=== PATIENT | male | born 1940 | race Caucasian/White ===

== ENCOUNTER 2017-05-07 14:52 | Inpatient (IN) | payer MEDICARE, OTHER ==
[~2017-05-07] VITALS: Ht 180.3 cm; Wt 126.0 kg
[~2017-05-07 14:52] MED LIST: ALLO100T PO; ASPI325T PO; ATEN-100 PO; ATOR10 PO; COLC1TAB7 PO; FURO40TA PO; LORTA5 PO; POTA10IN2 PO; RAPA8CAP PO; SINE50TA PO; TEMA15CA PO
[2017-05-07 14:54] VITALS: BP 159/101; PULSE 104; RESP 15; TEMP 98.4; O2SAT 98
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
[2017-05-07] MEDS ORDERED: SERT-132 PO (15:21)
[2017-05-07] MEDS ORDERED: FURO1TAB61 PO (15:21)
[2017-05-07] MEDS ORDERED: CARB50TA3 PO (15:21)
[2017-05-07] MEDS ORDERED: POTA10CA PO (15:21)
[2017-05-07] MEDS ORDERED: ALLO300T2 PO (15:21)
[2017-05-07] MEDS ORDERED: ASPI81CH CHEW (15:21)
[2017-05-07] MEDS ORDERED: ALBUAER3 INH (15:21)
[2017-05-07] MEDS ORDERED: METO50TA PO ×2 (15:21)
[2017-05-07] MEDS ORDERED: OCUVTAB4 PO (15:21)
[2017-05-07] MEDS ORDERED: SYMB160A INH (15:21)
[2017-05-07] MEDS ORDERED: ATOR20TA15 PO (15:21)
[2017-05-07] MEDS ORDERED: ALFU10TA2 PO (15:21)
[2017-05-07] MEDS ORDERED: SPIR50TA PO (15:21)
--- NOTE | 2017-05-07 15:37 | RADRPT ---
EXAM DATE/TIME: 05/07/2017 15:23 [facility] COMPARISON: No previous studies available for comparison. INDICATIONS : Fall. Left lateral elbow pain. MEDICAL HISTORY : None. SURGICAL HISTORY : None. ENCOUNTER: Initial ACUITY: 1 day PAIN SCORE: 10/10 LOCATION: Left lateral elbow FINDINGS: There is fracturing of the distal lateral aspect of the humerus involving the capitellum. The fragmen t is displaced anteriorly and laterally. The capitellum no longer communicates with the radial head. There appears to be possible fracturing of the lateral aspect of the radial head. There is an elbow e ffusion. The medial aspect of the distal humerus and the ulna are intact. There is chronic calcificat ion seen adjacent to the medial epicondyles. CONCLUSION: Fracturing of the distal lateral humerus and at the lateral radial head. Dashawn Siddiqui MD on May 07, 2017 at 15:33 Board Certified Radiologist. This report was verified electronically.
[2017-05-07] MEDS ORDERED: ONDANSETRON HCL 4 MG/2 ML VIAL IV PUSH ONE (16:00)
[2017-05-07] MEDS ORDERED: MORPHINE SULFATE 4 MG/ML INJ IV PUSH ONE ×2 (16:00→18:15)
[2017-05-07 16:22] LABS: AUTOMATED NEUTROPHIL # 7.9 TH/MM3 (1.8-7.7); BASOPHIL # 0.1 TH/MM3 (0-0.2); BASOPHIL % 0.7 % (0.0-2.0); EOSINOPHIL # 0.6 TH/MM3 (0-0.4); EOSINOPHIL % 5.1 % (0.0-4.0); HEMATOCRIT 43.9 % (39.0-51.0); HEMO FLAGS DIFF FINAL; LYMPH % 15.5 % (9.0-44.0); LYMPHOCYTE # 1.7 TH/MM3 (1.0-4.8); MEAN CELL VOLUME 83.7 FL (80.0-100.0); MEAN CORPUSCULAR HEMOGLOBIN 27.5 PG (27.0-34.0); MEAN CORPUSCULAR HGB CONC 32.8 % (32.0-36.0); MONO % 7.5 % (0.0-8.0); NEUT % 71.2 % (16.0-70.0); PLATELET COUNT 190 TH/MM3 (150-450); RED BLOOD COUNT 5.24 MIL/MM3 (4.50-5.90); WHITE BLOOD COUNT 11.1 TH/MM3 (4.0-11.0)
--- NOTE | 2017-05-07 16:25 | RADRPT ---
EXAM DATE/TIME: 05/07/2017 16:06 [facility] COMPARISON: CHEST SINGLE AP, December 03, 2013, 8:52. INDICATIONS : Evaluate for pnemonia, pneumothorax, or other communicable diseases. MEDICAL HISTORY : SURGICAL HISTORY : Pacemaker. Defribulator, CABG ENCOUNTER: Initial ACUITY: 1 day PAIN SCORE: 0/10 LOCATION: Bilateral chest FINDINGS: Pacemaker on the left. The lungs are clear. The heart is minimally enlarged. Sternal wires and bypass are noted. The pulmo nary vascularity is normal. There is no evidence for infiltrate or failure. The portion of the bony skeleton visualized is unremarkable. CONCLUSION: Compensated cardiomegaly otherwise negative Mike Kimball MD FACR on May 07, 2017 at 16:23 Board Certified Radiologist. This report was verified electronically.
[2017-05-07 16:34] LABS: APTT (PATIENT) 23.1 SEC (24.3-30.1); PROTHROMBIN TIME - PATIENT 11.1 SEC (9.8-11.6)
[2017-05-07 16:35] LABS: ALT (GPT) 27 U/L (12-78); ANION GAP 8 MEQ/L (5-15); AST (GOT) 21 U/L (15-37); BICARBONATE 27.7 MEQ/L (21.0-32.0); BLOOD UREA NITROGEN 29 MG/DL (7-18); CHLORIDE 104 MEQ/L (98-107); GLOMERULAR FILTRATION RATE 58 ML/MIN (>89); POTASSIUM 4.2 MEQ/L (3.5-5.1); SODIUM (NA) 140 MEQ/L (136-145)
[2017-05-07 16:37] LABS: ALKALINE PHOSPHATASE 67 U/L (45-117); TOTAL BILIRUBIN ADULT 0.4 MG/DL (0.2-1.0)
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
[2017-05-07] MEDS ORDERED: ALBUTEROL SULFATE 90 MCG/ACT HFA 8 GM INHALER INH PRN (17:15)
[2017-05-07] MEDS ORDERED: MORPHINE SULFATE 8 MG/ML INJ IV PUSH PRN (17:30)
[2017-05-07] MEDS ORDERED: HYDROmorphone HCL PF 1 MG/ML VIAL IV PUSH ONE (17:30)
[2017-05-07] MEDS ORDERED: ACETAMINOPHEN 325 MG TAB PO PRN (17:45)
[2017-05-07] MEDS ORDERED: ONDANSETRON HCL 4 MG/2 ML VIAL IVP PRN (17:45)
[2017-05-07] MEDS ORDERED: diphenhydrAMINE HCL 25 MG CAP PO ONE (18:15)
--- NOTE | 2017-05-07 19:30 | RADRPT ---
EXAM DATE/TIME: 05/07/2017 18:35 [facility] COMPARISON: No previous studies available for comparison. INDICATIONS : Patient fell injury to left elbow, evaluate fracture. RADIATION DOSE: 12.05 CTDIvol (mGy) MEDICAL HISTORY : Congestive hearrt failure. Cardiovascular disease D-fib SURGICAL HISTORY : None. ENCOUNTER: Initial ACUITY: 1 day PAIN SCALE: 7/10 LOCATION: Left elbow TECHNIQUE: Volumetric scanning of the elbow was performed. Using automated exposure control and adjustment of t he mA and/or kV according to patient size, radiation dose was kept as low as reasonably achievable to obtain optimal diagnostic quality images. DICOM format image data is available electronically for r eview and comparison. FINDINGS: There is fracturing of the distal lateral humerus. The lateral fragment of the distal humerus is disp laced and angulated laterally and anteriorly. The capitellum is seen anterior to the radial head. The re are small bone fragments seen between the radial head and the capitellum. There is some fracturing of the anterior lateral aspect of the trochea at the distal medial humerus. The elbow joint between the distal humerus and the ulna is aligned. There is a minimal fragmentation at the distal olecranon which is likely chronic. CONCLUSION: Fracture of the distal humerus involving the lateral aspect of the humerus and the anterior and later al aspect of the trochlea. The large lateral fragment is anteriorly and laterally displaced. Dashawn Siddiqui MD on May 07, 2017 at 19:19 Board Certified Radiologist. This report was verified electronically.
[2017-05-07] MEDS ORDERED: HYDROmorphone HCL PF 1 MG/ML VIAL IV PRN (20:00)
[2017-05-07 20:34] VITALS: BP 111/72; PULSE 88; RESP 18; TEMP 97.9; O2SAT 91
[2017-05-07] MEDS ORDERED: ATORVASTATIN 20 MG TAB PO SCH (21:00)
[2017-05-07] MEDS ORDERED: ZOLPIDEM TARTRATE 5 MG TAB PO PRN (21:00)
[2017-05-07 21:10] VITALS: O2SAT 95
[2017-05-07] MEDS: ACETAMINOPHEN 1000 MG/100 ML VIAL IV SCH (22:40)
[2017-05-07] MEDS: BUDESONIDE-FORMOTEROL 160/4.5 MCG INHALER INH SCH (22:40)
[2017-05-07] MEDS: LEVODOPA/CARBIDOPA 1 TAB TABCR PO SCH (22:40)
[2017-05-07] MEDS: KETOROLAC TROMETHAMINE 30 MG/ML (IVP) VIAL IVP PRN (22:41)
[2017-05-07] MEDS: DOCUSATE SODIUM 50 MG/SENNA 8.6 MG TAB PO SCH (22:41)
[2017-05-07] MEDS: METOPROLOL TARTRATE 50 MG TAB PO SCH (22:41)
[2017-05-08] VITALS (7 sets, daily range): BP systolic 91–104; BP diastolic 51–65; PULSE 72–90; RESP 16–20; TEMP 97.6–98.6; O2SAT 92–97
[2017-05-08] MEDS: ACETAMINOPHEN 1000 MG/100 ML VIAL IV SCH ×4 (00:15→19:12)
[2017-05-08] MEDS ORDERED: ALLOPURINOL 300 MG TAB PO SCH (09:00)
[2017-05-08] MEDS: FUROSEMIDE 80 MG TAB PO SCH (09:00)
[2017-05-08] MEDS ORDERED: MINERALS PO SCH (09:00)
[2017-05-08] MEDS ORDERED: PT PRESERVISION AREDS PO SCH (09:00)
[2017-05-08] MEDS: METOPROLOL TARTRATE 50 MG TAB PO SCH ×2 (09:00→21:00)
[2017-05-08] MEDS ORDERED: MULTIPLE VITAMINS PO SCH (09:00)
[2017-05-08] MEDS: SPIRONOLACTONE 50 MG TAB PO SCH (09:00)
[2017-05-08] MEDS ORDERED: ceFAZolin INJ 1,000 MG VIAL ONE (09:01)
[2017-05-08] MEDS ORDERED: VANCOMYCIN HCL 1000 MG VIAL ONE (09:01)
[2017-05-08] MEDS ORDERED: ceFAZolin 2 GM PREMIX 50 ML ONE (09:01)
[2017-05-08] MEDS ORDERED: GENTAMICIN SULFATE 80 MG/2 ML VIAL ONE (09:01)
[2017-05-08] MEDS ORDERED: SODIUM CHLOR 0.9% 250 ML INJ 250 ML ONE (09:02)
[2017-05-08] MEDS ORDERED: FAMOTIDINE 20 MG/2 ML VIAL ONE (09:17)
[2017-05-08] MEDS ORDERED: ACETAMINOPHEN 1000 MG/100 ML 100 ML IV ONE (09:17)
[2017-05-08] MEDS ORDERED: MIDAZOLAM HCL 2 MG/2 ML VIAL IV ONE ×2 (09:32→11:45)
[2017-05-08] MEDS ORDERED: NEOSTIGMINE 3 MG/3 ML SYR IV ONE (09:32)
[2017-05-08] MEDS ORDERED: PROPOFOL 200 MG/20 ML AMP IV ONE (09:32)
[2017-05-08] MEDS ORDERED: ePHEDrine/NS 25 MG/5 ML SYR IV ONE ×2 (09:32→12:00)
[2017-05-08] MEDS ORDERED: HYDR-3580 PO (09:50)
[2017-05-08] MEDS ORDERED: PNEUMOCOCCAL POLYVALENT INJ 25 MCG/0.5 ML SYR IM ONE (10:00)
[2017-05-08] MEDS ORDERED: INFLUENZA VIRUS VACCINE (QUADRIVALENT) 0.5 ML SYR IM ONE (10:00)
[2017-05-08 10:42] LABS: HEMOGLOBIN A1a 1.1 %; HEMOGLOBIN A1b 2.3 %; HEMOGLOBIN Ao 81.7 %; HEMOGLOBIN LA1C 2.3 %
[2017-05-08] MEDS ORDERED: Post-op Orders (for Pharmacy) MISC XX ONE (11:00)
[2017-05-08] MEDS ORDERED: ACETAMINOPHEN/HYDROcodone 325 MG/7.5 MG TAB PO PRN (11:00)
[2017-05-08] MEDS ORDERED: MORPHINE SULFATE 4 MG/ML INJ IV PUSH PRN (11:00)
--- NOTE | 2017-05-08 11:03 | PD.OP ---
cc: Eron Tian MD Operative Report Date of Surgery: May 08, 2017 Preoperative Diagnosis: Displaced intra-articular left distal humerus fracture, radial head fracture Postoperative Diagnosis: Procedure: Open treatment of left radial head fracture with excision of fragment, open reduction internal fixation intra-articular left distal humerus fracture Anesthesia: Gen. Surgeon: Eron Tian Valuation Manager(s): CY Cerda PA-C The surgical procedure was assisted by my physician assistant quality manager. My P.A. presence was necessary throughout this case for the manipulation and positioning of the surgical extremity. My P.A. was assisting me throughout the duration of this procedure. The skill set of a physician assistant quality manager was medically necessary to complete this procedure. During the surgical case the surgical services director was working at the back table and the physician assistant quality manager was directly assisting me. Operation and Findings: Plan of activity : Nonweightbearing left arm, start passive range of motion in 2 weeks Patient was seen and evaluated preoperatively and found to have displaced left distal humerus fracture and radial head fracture. Treatment options were discussed regarding distal humerus fracture including surgical and nonsurgical treatments. After detailed discussion of risk and benefits of procedure patient wishes to proceed with surgery. Risks of surgery include bleeding, infection, nonunion, malunion, painful hardware, loss of motion of shoulder and elbow, weakness and numbness of arm, ulnar nerve injury as well as medical competitions including blood clots stroke and . Patient was brought to operating room and placed on the OR table. GETA was administered by anesthesiologist. Patient was positioned in supine position. Operative arm and shoulder were prepped with alcohol followed by Hibiclens and draped usual sterile fashion. Timeout procedure was performed. IV antibiotics were given prior to incision. A standard lateral approach was utilized. Subcutaneous tissues was dissected with Bovie. The subcutaneous was border of the lateral distal humerus was exposed. Brachioradialis was elevated anteriorly to expose fracture. Fracture site was visualized. Soft tissue was removed from the fracture site. Fracture site was cleaned with curettes. At this point the fracture was reduced using fracture tenaculums. There was some impaction of the articular surface. This was elevated. K wires were used to hold provisional fixation. Multiplanar fluoroscopy confirmed excellent of fracture. A 2.7 cortical lag screw was placed along the proximal end of the fracture. A second 2.7 cortical lag screw was placed from lateral to medial. Good compression was obtained. Next a Synthes distal humerus plate was selected. Next the lateral plate was placed along the lateral humerus. Plate was provisionally held to bone with K wires. 3.5 cortical screws were used to compress plate to bone. Additional 2.7 locking screws were placed distally. K wires were removed. Next attention was turned towards the radial head. The radial head was identified. There was a relatively small fracture of the radial head. This was less than 20% of the articular surface. This fragment was excised. The elbow was stable throughout range of motion. The articular surface was visualized and was congruent. Final fluoroscopy revealed excellent alignment of fracture with well-placed hardware. Incision was thoroughly irrigated. Fascia was closed with #1 Vicryl, subcutaneous tissues closed with 3-0 Vicryl, and skin was closed with valerio. Sterile dressings were applied. Needle and sponge counts were correct. Patient was placed into a sling, and then transferred to recovery room in stable condition Eron Tian MD May 08, 2017 11:03
[2017-05-08] MEDS ORDERED: DO NOT ADM ANY ANTICOAGULANT DRUGS PRN (11:11)
[2017-05-08] MEDS ORDERED: *RESP: ALBUTEROL 2.5 MG/3 ML NEB (PRN) PERIprocedural Use ONLY NEB ONE (11:19)
[2017-05-08] MEDS ORDERED: ACETAMINOPHEN 1000 MG/100 ML VIAL IV ONE (11:45)
[2017-05-08] MEDS ORDERED: FAMOTIDINE 20 MG/2 ML VIAL IV ONE (11:45)
[2017-05-08] MEDS ORDERED: DEXAMETHASONE SOD PHOS 4 MG/ML VIAL IV ONE (11:45)
[2017-05-08] MEDS ORDERED: *morphine SULFATE 8 MG/ML PERIprocedure ONLY ONE (11:59)
--- NOTE | 2017-05-08 12:29 | HHI.FPPN ---
Subjective Remarks Angelo Bolanos is a 76yo gentleman with medical history significant for CHF, A fib, COPD, sleep apnea admitted for left elbow humeral and radial fractures, sustained after tripping over a stool and landing on left elbow. He noticed immediate pain in his left elbow. No head trauma, no LOC. For further details, please see resident H&P. This morning, he underwent ORIF of left elbow fractures by Dr. Garcia. He is seen in PACU and is awake and alert. He complains of some left elbow pain. Per nursing in PACU, his AICD will be interrogated by [employer] soon. ROS: No chest pain, no SOB, no palpitations. + left elbow pain. All other systems reviewed are negative. PMH/PSxH/SocHx/FamHx: Per resident H&P. Significant for: CHF, A fib, CAD, COPD, sleep apnea, gout, BPH. Aortic valve replacement, colon resection, tonsillectomy. Mother with heart disease and diabetes. 100 pack year tobacco history, quit 2010. Rare alcohol use. Lives with and stepson. Objective Vitals Vital Signs Date Time Temp Pulse Resp B/P (MAP) Pulse Ox O2 Delivery O2 Flow Rate FiO2 05/08/17 12:00 70 15 121/57 (78) 93 Nasal Cannula 3 05/08/17 11:45 75 15 122/67 (85) 94 Nasal Cannula 4 05/08/17 11:30 77 15 129/65 (86) 94 Nasal Cannula 4 05/08/17 11:15 98.7 78 14 148/77 (100) 94 Simple Mask 6 05/08/17 07:23 18 05/08/17 06:51 97.9 72 16 98/60 (73) 96 05/08/17 02:26 18 05/08/17 00:50 98.4 78 18 104/65 (78) 95 05/08/17 00:18 18 05/07/17 21:10 95 05/07/17 20:34 97.9 88 18 111/72 (85) 91 05/07/17 14:54 98.4 104 15 159/101 (120) 98 I/O 05/07/17 05/07/17 05/07/17 05/08/17 05/08/17 05/08/17 07:00 15:00 23:00 07:00 15:00 23:00 Intake Total 200 ml 1000 ml Output Total 50 ml Balance 200 ml 950 ml Intake Oral 200 ml 200 ml Other 800 ml Output Estimated Blood Loss 50 ml Result Diagram: 05/07/17 1600 05/07/17 1600 Objective Remarks GENERAL: in NAD, no resp distress, nontoxic. Talks in complete sentences. HEENT: NCAT, EOMI, no scleral icterus, no conjunctival injection. MMM. NECK: Supple, no meningeal signs. No JVD. CV: RRR, S1, S2. No murmurs. CHEST/PULM: CTAB, no crackles, no wheezes. No retractions, no accessory muscle use. Midline sternotomy scar. ABD/GI: +BS, soft, nontender, nondistended. EXT: 2+ DP pulses. No calf tenderness. No edema. Left upper arm in splint. Able to wiggle fingers. NEURO: Awake, alert. Normal muscle tone. Sensation to light touch in tact. Grossly WNL. SKIN: No rashes, no jaundice. Cap refill intact. PSYCH: Mood and affect are appropriate. Speech fluent. Does not appear to respond to internal stimuli. A/P Assessment and Plan 76-year-old male with past medical history of CHF, COPD, CAD, obstructive sleep apnea, and gout presents with an acute left elbow fracture after tripping over an antique stool in his home. Orthopedic surgery has been consulted and planned to take him to the OR for operative repair in the morning. Patient will be nothing by mouth at midnight except for by mouth medications. Pain will be controlled with IV medications with conversion to by mouth medications after surgery. Attending Attestation Patient seen, examined, and discussed with resident team. The patient has been seen and examined. The chart and all resident notes have been reviewed. I agree that inpatient care is appropriate and that a two midnight stay is expected for the reasons documented in the resident history and physical. I have discussed this with the resident and certify the resident s order for inpatient admission. Problem List: (1) Humeral distal fracture ICD Codes: S42.409A - Unspecified fracture of lower end of unspecified humerus , initial encounter for closed fracture Status: Acute Plan: -Left elbow x-ray and CT confirmed left distal humerus fracture -Orthopedics consulted, plan for operative repair in the a.m. -Pain control with PRN Toradol IV, Tylenol IV, and morphine IV for breakthrough -Switch to oral pain medications after surgery -Hold chemoprophylaxis until 24 hours after surgery -Vitamin D level pending -Chest x-ray shows compensated cardiomegaly, otherwise negative - BNP wnl at 95 -EKG significant for frequent supraventricular premature complexes but NSR, left bundle branch block - similar to previous tracing on 03/18/2014 (2) Leukocytosis ICD Codes: D72.829 - Elevated white blood cell count, unspecified Status: Acute Plan: Likely stress response. No obvious infectious etiology. (3) Vitamin D deficiency ICD Codes: E55.9 - Vitamin D deficiency, unspecified Status: Chronic Plan: Initiate Vit D replacement therapy. (4) Chronic Medical Problems Status: Chronic Plan: CAD: Continue Aspirin 81mg PO daily, medical management. CHF: Continue metoprolol 50 mg by mouth twice a day, spironolactone 50 mg by mouth daily, furosemide 80 mg by mouth daily, potassium chloride 10 mEq by mouth daily. AICD to be interrogated. COPD: Continue albuterol pro-air inhaler 2 puffs every 4 hours PRN SOB, Symbicort inhaler 2 puffs every 12 hours scheduled Hyperlipidemia: Continue atorvastatin 20 mg by mouth at bedtime Gout: Continue allopurinol 300 mg by mouth daily AFIB: Well controlled. Patient has a defibrillator Anxiety/Depression: Continue sertraline 80 mg by mouth daily BPH: Hold Alfuzosin until after surgery Parkinsonian Tremors: Continue Carbidopa-Levodopa 1 tab PO Q12hr Problem Qualifiers (1) Humeral distal fracture: Qualified Codes: S42.492A - Other displaced fracture of lower end of left humerus, initial encounter for closed fracture (2) Leukocytosis: Qualified Codes: D72.829 - Elevated white blood cell count, unspecified Jazmyn Smith MD May 08, 2017 12:29
--- NOTE | 2017-05-08 12:55 | RADRPT ---
EXAM DATE/TIME: 05/08/2017 10:40 [facility] COMPARISON: ELBOW LEFT LIMITED (AP & LAT), May 07, 2017, 15:23. INDICATIONS : Left elbow fracture status post open ridgid internal fixation. MEDICAL HISTORY : Congestive heart failure. Cardiovascular disease. SURGICAL HISTORY : Pacemaker. CABG. ENCOUNTER: Subsequent ACUITY: 1 day PAIN SCORE: Non-responsive. LOCATION: Left elbow FINDINGS: Limited AP and lateral views of the left elbow were obtained and demonstrate the patient status post open ridgid internal fixation with a screw plate fixation device transfixing the distal humeral fract ure. 2 surgical screws are present as well. The fracture fragments are in anatomic alignment. There i s mild soft tissue prominence. CONCLUSION: Status post open ridgid internal fixation. Percy Poon MD on May 08, 2017 at 12:52 Board Certified Radiologist. This report was verified electronically.
--- NOTE | 2017-05-08 14:01 | EKG ---
Date Performed: 05/07/2017 Time Performed: 16:04:40 PTAGE: 76 years EKG: Sinus rhythm WITH FREQUENT SUPRAVENTRICULAR PREMATURE COMPLEXES LEFT BUNDLE BRANCH BLOCK ABNORMAL ECG Compared to prior tracing no significant change PREVIOUS TRACING : 03/18/2014 13.17 DOCTOR: Ashely Li Interpretating Date/Time 05/08/2017 13:56:33
[2017-05-08] MEDS: DOCUSATE SODIUM 50 MG/SENNA 8.6 MG TAB PO SCH ×2 (14:23→20:46)
[2017-05-08] MEDS: SERTRALINE HCL 50 MG TAB PO SCH (14:23)
[2017-05-08] MEDS: LEVODOPA/CARBIDOPA 1 TAB TABCR PO SCH ×2 (14:24→20:46)
[2017-05-08] MEDS: ASPIRIN 81 MG CHEW TAB CHEW SCH (14:24)
[2017-05-08] MEDS: POTASSIUM CHLORIDE 10 MEQ CAP PO SCH (14:24)
[2017-05-08] MEDS: BUDESONIDE-FORMOTEROL 160/4.5 MCG INHALER INH SCH ×2 (14:24→20:44)
[2017-05-08 15:55] LABS: HEMATOCRIT 41.3 % (39.0-51.0); MEAN CELL VOLUME 84.6 FL (80.0-100.0); MEAN CORPUSCULAR HEMOGLOBIN 27.3 PG (27.0-34.0); MEAN CORPUSCULAR HGB CONC 32.3 % (32.0-36.0); PLATELET COUNT 189 TH/MM3 (150-450); RED BLOOD COUNT 4.88 MIL/MM3 (4.50-5.90); RED CELL DISTRIBUTION WIDTH 15.5 % (11.6-17.2); REVIEW FLAG FINAL; WHITE BLOOD COUNT 12.1 TH/MM3 (4.0-11.0)
[2017-05-08 16:29] LABS: BICARBONATE 26.6 MEQ/L (21.0-32.0); POTASSIUM 4.5 MEQ/L (3.5-5.1)
[2017-05-08 16:50] LABS: CALCIUM-PROTEIN CORRECTED 7.6 MG/DL (8.5-10.1)
--- NOTE | 2017-05-08 17:47 | MB ---
cc: ALEXANDER DE LA CRUZ DATE OF CONSULTATION 05/07/[address] Smith. REASON FOR CONSULTATION Left distal humerus fracture. HISTORY OF THE PRESENT ILLNESS Mr. Bolanos is a 76-year-old male who had three falls today. He was first outside picking up some debris in his yard. He tripped and fell twice. He then went in to the house. He then tripped over a step stool inside the house. He landed on his left arm. He had immediate left arm pain. He was seen in the emergency room. X-rays and CT scan revealed a complex fracture of the left distal humerus. He is currently awake and alert in the emergency department. His only complaint is his left arm. He denies any dizziness, syncope or loss of consciousness. Pain is worse with movement. ALLERGIES NONE. PAST SURGICAL HISTORY 1. Colon resection. 2. Aortic valve replacement. 3. Tonsillectomy. MEDICATIONS Include: 1. Symbicort 2. ProAir. 3. Metoprolol. 4. Spironolactone. 5. Lasix. 6. Potassium. 7. Carbidopa-levodopa. 8. Allopurinol. 9. Aspirin. PAST MEDICAL HISTORY Illnesses: 1. Atrial fibrillation. 2. Congestive heart failure. 3. Coronary artery disease. 4. Benign prostatic hypertrophy. 5. Gout. 6. Arthritis. 7. Chronic obstructive pulmonary disease. SOCIAL HISTORY The patient denies tobacco or drug use. Drinks alcohol occasionally. FAMILY HISTORY Noncontributory. REVIEW OF SYSTEMS The patient denies headache, visual changes, neck pain, chest pain, shortness of breath, abdominal pain, nausea or vomiting or recent weight loss or numbness or tingling of the extremities. He complains of left elbow pain. Pain is worse with movement. PHYSICAL EXAMINATION GENERAL: The patient is a pleasant 76-year-old male in no acute distress. He is awake and alert. He is alert and oriented times three. He is moderately overweight. VITAL SIGNS: Temperature 97.9, pulse 88, respirations 18, blood pressure 111/72, O2 sat 91% on room air. HEAD: The patient is normocephalic. Pupils are equal. NECK: Soft, nontender. Trachea is midline. ABDOMEN: Soft, nontender, nondistended. EXTREMITIES: Examination of left arm reveals no tenderness around his shoulder. He is diffusely tender around the elbow. He has pain with any elbow motion. He has good cap refill is all of his fingers. Skin is intact. Examination of right arm reveals no pain with shoulder, elbow or wrist motion. Skin is intact. Radial pulses palpable. Shovel Engineer strength is +5. Examination of bilateral lower extremities reveals no pain with hip, knee or ankle motion. Skin is intact. Dorsalis pedis pulses palpable. Sensation is intact. IMAGING X-rays of left elbow were reviewed. X-rays revealed displaced left distal humerus fracture. IMPRESSION 1. Congestive heart failure. 2. Coronary artery disease. 3. Atrial fibrillation. 4. Left distal humerus fracture. PLAN Treatment options were discussed with the patient. At this point I would recommend open reduction, internal fixation of the left distal humerus. Risks of surgery include bleeding, infection, injury to arteries, nerves and blood vessels, nonunion, malunion, painful hardware, elbow stiffness, elbow arthritis as well as medical complications including blood clot, stroke, heart attack and . All questions were answered. I will plan on surgery tomorrow. A mid-level provider in my office, nurse practitioner or PA, may see this patient on a follow-up basis and continue to implement the objective of this plan including: Starting or adjusting medications, injections of muscle, tendon, bursa or joints, cast application, orthotic or brace application, physical therapy, further radiographic studies including x-ray, MRI, CT, ultrasounds or bone scan, vascular studies, neurologic studies, or other specialist consultations, and proceeding with surgical management as appropriate. MD MARY Styles/GIANA /9:19 PM /5:21 PM
[2017-05-08] MEDS: ceFAZolin 2 GM PREMIX 50 ML IV SCH (17:50)
[2017-05-08] MEDS ORDERED: KETOROLAC TROMETHAMINE 30 MG/ML (IVP) VIAL IV PUSH ONE (19:00)
[2017-05-08] MEDS ORDERED: SODIUM CHLOR 0.9% 1000 ML INJ 1,000 ML IV ONE (19:00)
[2017-05-08] MEDS: KETOROLAC TROMETHAMINE 30 MG/ML (IVP) VIAL IVP PRN (19:11)
[2017-05-08] MEDS: CALCIUM/VITAMIN D 250 MG/125 U TAB PO SCH (20:46)
[2017-05-08] MEDS ORDERED: ATORVASTATIN 20 MG TAB PO SCH (21:00)
[2017-05-08] MEDS: ALLOPURINOL 300 MG TAB PO SCH (21:30)
[2017-05-09] MEDS: ACETAMINOPHEN 1000 MG/100 ML VIAL IV SCH ×2 (00:15→02:50)
[2017-05-09 00:18] VITALS: BP 107/52; PULSE 95; RESP 19; TEMP 98.1; O2SAT 92
[2017-05-09] MEDS: ceFAZolin 2 GM PREMIX 50 ML IV SCH ×2 (01:21→09:06)
[2017-05-09 02:30] VITALS: BP 134/70; PULSE 87; RESP 16; TEMP 96; O2SAT 98
[2017-05-09 02:35] VITALS: PULSE 58
--- NOTE | 2017-05-09 06:57 | PD.ORT.PN ---
Subjective Subjective Remarks POD 1 s/p ORIF left distal humerus doing well. pain controlled. out of bed Objective Vitals Vital Signs Date Time Temp Pulse Resp B/P (MAP) Pulse Ox O2 Delivery O2 Flow Rate FiO2 05/09/17 02:35 58 05/09/17 02:30 96.0 87 16 134/70 (91) 98 05/09/17 00:18 98.1 95 19 107/52 (70) 92 05/08/17 23:43 90 05/08/17 21:51 97.7 89 20 91/53 (66) 92 05/08/17 20:00 93 05/08/17 16:49 98.6 88 16 97/51 (66) 94 05/08/17 13:29 97.6 86 16 101/56 (71) 97 05/08/17 13:15 98.4 82 16 133/60 (84) 94 Nasal Cannula 3 05/08/17 12:45 81 15 119/62 (81) 94 Nasal Cannula 3 05/08/17 12:15 71 15 119/59 (79) 93 Nasal Cannula 3 05/08/17 12:00 70 15 121/57 (78) 93 Nasal Cannula 3 05/08/17 11:45 75 15 122/67 (85) 94 Nasal Cannula 4 05/08/17 11:30 77 15 129/65 (86) 94 Nasal Cannula 4 05/08/17 11:15 98.7 78 14 148/77 (100) 94 Simple Mask 6 05/08/17 07:23 18 I/O 05/08/17 05/08/17 05/08/17 05/09/17 05/09/17 05/09/17 07:00 15:00 23:00 07:00 15:00 23:00 Intake Total 1000 ml 245 ml Output Total 50 ml Balance 950 ml 245 ml Intake Oral 200 ml 245 ml Other 800 ml Output Estimated Blood Loss 50 ml # Voids 2 Result Diagram: 05/08/17 1541 05/08/17 1541 Objective Remarks LUE: +long arm splint. intact. NVI with full sensation of fingers. Assessment & Plan Assessment and Plan 1) Left Distal Humerus Fx s/p ORIF - POD 1 -NWB -maintain splint at all times -plan for DC home today -scripts on chart -f/u with Garcia or PA in 2 weeks Herman Poe May 09, 2017 06:57
[2017-05-09 08:00] VITALS: BP 115/54; PULSE 92; RESP 18; TEMP 96.8; O2SAT 93; O2SAT 95
[2017-05-09] MEDS ORDERED: CHOLECALCIFEROL (VIT D3) 1000 UNIT TAB PO SCH (09:00)
[2017-05-09] MEDS: CALCIUM/VITAMIN D 250 MG/125 U TAB PO SCH (09:03)
[2017-05-09] MEDS: METOPROLOL TARTRATE 50 MG TAB PO SCH (09:03)
[2017-05-09] MEDS: POTASSIUM CHLORIDE 10 MEQ CAP PO SCH (09:03)
[2017-05-09] MEDS: ALLOPURINOL 300 MG TAB PO SCH (09:04)
--- NOTE | 2017-05-09 09:04 | HHI.FPPN ---
Subjective Remarks Patient is doing well this morning. Has no complaints. Pain is down to 5/10 and he had a BM this morning. He is looking forward to going home today. (Chanda Mendoza MD R2) Objective Vitals Vital Signs Date Time Temp Pulse Resp B/P (MAP) Pulse Ox O2 Delivery O2 Flow Rate FiO2 05/09/17 02:35 58 05/09/17 02:30 96.0 87 16 134/70 (91) 98 05/09/17 00:18 98.1 95 19 107/52 (70) 92 05/08/17 23:43 90 05/08/17 21:51 97.7 89 20 91/53 (66) 92 05/08/17 20:00 93 05/08/17 16:49 98.6 88 16 97/51 (66) 94 05/08/17 13:29 97.6 86 16 101/56 (71) 97 05/08/17 13:15 98.4 82 16 133/60 (84) 94 Nasal Cannula 3 05/08/17 12:45 81 15 119/62 (81) 94 Nasal Cannula 3 05/08/17 12:15 71 15 119/59 (79) 93 Nasal Cannula 3 05/08/17 12:00 70 15 121/57 (78) 93 Nasal Cannula 3 05/08/17 11:45 75 15 122/67 (85) 94 Nasal Cannula 4 05/08/17 11:30 77 15 129/65 (86) 94 Nasal Cannula 4 05/08/17 11:15 98.7 78 14 148/77 (100) 94 Simple Mask 6 I/O 05/08/17 05/08/17 05/08/17 05/09/17 05/09/17 05/09/17 07:00 15:00 23:00 07:00 15:00 23:00 Intake Total 1000 ml 245 ml Output Total 50 ml Balance 950 ml 245 ml Intake Oral 200 ml 245 ml Other 800 ml Output Estimated Blood Loss 50 ml # Voids 2 (Chanda Mendoza MD R2) Result Diagram: 05/08/17 1541 05/08/17 1541 Objective Remarks GENERAL: in NAD, no resp distress, nontoxic. Talks in complete sentences. HEENT: NCAT, EOMI, no scleral icterus, no conjunctival injection. MMM. NECK: Supple, no meningeal signs. No JVD. CV: RRR, S1, S2. No murmurs. CHEST/PULM: CTAB, no crackles, no wheezes. No retractions, no accessory muscle use. Midline sternotomy scar. ABD/GI: +BS, soft, nontender, nondistended. EXT: 2+ DP pulses. No calf tenderness. No edema. Left upper arm in splint. Able to wiggle fingers. Good cap refill NEURO: Awake, alert. Normal muscle tone. Sensation to light touch in tact. Grossly WNL. SKIN: No rashes, no jaundice. Cap refill intact. PSYCH: Mood and affect are appropriate. Speech fluent. Does not appear to respond to internal stimuli. (Chanda Mendoza MD R2) A/P Assessment and Plan 76-year-old male with past medical history of CHF, COPD, CAD, obstructive sleep apnea, and gout presented with an acute left elbow fracture after tripping over an antique stool in his home. Orthopedic surgery was consulted and open treatment of left radial head fracture with excision of fragment as well as an open reduction internal fixation of the intra-articular left distal humerus fracture was performed on 05/08. On 05/09/17, the patient was cleared for discharge by orthopedic surgery. Discharge Planning Patient has been cleared by orthopedic surgery for discharge home today 05/09/17 (Chanda Mendoza MD R2) Attending Attestation Patient seen and examined, discussed with Dr. Mendoza. I agree with assessment and management as documented and discussed with me. Pt without complaints today. He reports left elbow pain is improved from yesterday. He has been cleared by ortho for discharge. Discharge home today. (Jazmyn Smith MD) Problem List: (1) Humeral distal fracture ICD Codes: S42.409A - Unspecified fracture of lower end of unspecified humerus , initial encounter for closed fracture Status: Acute Plan: -Left elbow x-ray and CT confirmed left distal humerus fracture -Postop day 1, ORIF -Pain control with PRN Toradol IV, Tylenol IV, and morphine IV for breakthrough -Switched to oral pain medications after surgery -Vitamin D level 20.5 - started on vitamin D replacement -Patient would not need any occupational therapy rehabilitation at home (2) Leukocytosis ICD Codes: D72.829 - Elevated white blood cell count, unspecified Status: Acute Plan: Likely stress response. No obvious infectious etiology. Stable at 12.2 (3) Vitamin D deficiency ICD Codes: E55.9 - Vitamin D deficiency, unspecified Status: Chronic Plan: Initiate Vit D replacement therapy: 1000 units by mouth daily. (4) Chronic Medical Problems Status: Chronic Plan: CAD: Continue Aspirin 81mg PO daily, medical management. CHF: Continue metoprolol 50 mg by mouth twice a day, spironolactone 50 mg by mouth daily, furosemide 80 mg by mouth daily, potassium chloride 10 mEq by mouth daily. AICD to be interrogated. COPD: Continue albuterol pro-air inhaler 2 puffs every 4 hours PRN SOB, Symbicort inhaler 2 puffs every 12 hours scheduled Hyperlipidemia: Continue atorvastatin 20 mg by mouth at bedtime Gout: Continue allopurinol 300 mg by mouth daily AFIB: Well controlled. Patient has a defibrillator Anxiety/Depression: Continue sertraline 80 mg by mouth daily BPH: Continue Alfuzosin Parkinsonian Tremors: Continue Carbidopa-Levodopa 1 tab PO Q12hr (Chanda Mendoza MD R2) Problem Qualifiers (1) Humeral distal fracture: Qualified Codes: S42.492A - Other displaced fracture of lower end of left humerus, initial encounter for closed fracture (2) Leukocytosis: Qualified Codes: D72.829 - Elevated white blood cell count, unspecified Chanda Mendoza MD R2 May 09, 2017 09:04 Jazmyn Smith MD May 09, 2017 21:11
[2017-05-09] MEDS: SERTRALINE HCL 50 MG TAB PO SCH (09:05)
[2017-05-09] MEDS: DOCUSATE SODIUM 50 MG/SENNA 8.6 MG TAB PO SCH (09:06)
[2017-05-09] MEDS: BUDESONIDE-FORMOTEROL 160/4.5 MCG INHALER INH SCH (09:07)
[2017-05-09] MEDS ORDERED: KETO10 PO (09:09)
--- NOTE | 2017-05-09 09:10 | HHI.DCPOC ---
Discharge Care Plan Diagnosis: (1) Radial head fracture, closed (2) Humeral distal fracture (3) COPD (chronic obstructive pulmonary disease) (4) Atrial fibrillation and flutter (5) Vitamin D deficiency Goals to Promote Your Health * To prevent worsening of your condition and complications * To maintain your health at the optimal level Directions to Meet Your Goals Take your medications as prescribed Follow your dietary instruction Follow activity as directed Keep your appointments as scheduled Take your immunizations and boosters as scheduled If your symptoms worsen call your PCP, if no PCP go to Urgent Care Center or Emergency Room Smoking is Dangerous to Your Health. Avoid second hand smoke Call the 24-hour hour crisis hotline for domestic abuse at Chanda Mendoza MD R2 May 09, 2017 09:10
[2017-05-09] MEDS ORDERED: VITA1000 PO (09:11)
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
[2017-05-09] MEDS: SPIRONOLACTONE 50 MG TAB PO SCH (10:27)
[2017-05-09] MEDS: ASPIRIN 81 MG CHEW TAB CHEW SCH (10:27)
[2017-05-09] MEDS: LEVODOPA/CARBIDOPA 1 TAB TABCR PO SCH (10:28)
[2017-05-09] MEDS: FUROSEMIDE 80 MG TAB PO SCH (10:28)
[2017-05-09 11:12] LABS: BICARBONATE 28.4 MEQ/L (21.0-32.0); POTASSIUM 3.8 MEQ/L (3.5-5.1)
[2017-05-09 11:20] LABS: AUTOMATED NEUTROPHIL # 9.1 TH/MM3 (1.8-7.7); BASOPHIL # 0.1 TH/MM3 (0-0.2); BASOPHIL % 0.8 % (0.0-2.0); EOSINOPHIL # 0.2 TH/MM3 (0-0.4); EOSINOPHIL % 1.6 % (0.0-4.0); HEMATOCRIT 38.7 % (39.0-51.0); HEMO FLAGS DIFF FINAL; LYMPH % 15.2 % (9.0-44.0); LYMPHOCYTE # 1.9 TH/MM3 (1.0-4.8); MEAN CELL VOLUME 84.9 FL (80.0-100.0); MEAN CORPUSCULAR HEMOGLOBIN 27.6 PG (27.0-34.0); MEAN CORPUSCULAR HGB CONC 32.5 % (32.0-36.0); MONO % 7.4 % (0.0-8.0); PLATELET COUNT 159 TH/MM3 (150-450); RED BLOOD COUNT 4.56 MIL/MM3 (4.50-5.90); RED CELL DISTRIBUTION WIDTH 15.4 % (11.6-17.2); WHITE BLOOD COUNT 12.2 TH/MM3 (4.0-11.0)
== END 2017-05-09 11:42 | disposition home or self-care (01) | DRG 493 ==
LOC: NEPC 14:52 → NEDA 16:40 → OBSVTOIN 17:47 → NEPHCDU 19:03 → N06B 05-09 02:10
PROVIDERS: ADMIT Family Medicine; ATTEND Family Medicine
PROC: 0PSJ04Z Reposition Left Radius with Internal Fixation Device, Open Approach (ICD-10-PCS; 2017-05-08)
PROC: 0PSG04Z Reposition Left Humeral Shaft with Internal Fixation Device, Open Approach (ICD-10-PCS; principal; 2017-05-08 09:16)
DX: S42.492A Other displaced fracture of lower end of left humerus, initial encounter for closed fracture (principal); I48.92 Unspecified atrial flutter; I11.0 Hypertensive heart disease with heart failure; I50.9 Heart failure, unspecified; I48.91 Unspecified atrial fibrillation; E55.9 Vitamin D deficiency, unspecified; S52.122A Displaced fracture of head of left radius, initial encounter for closed fracture; W01.0XXA Fall on same level from slipping, tripping and stumbling without subsequent striking against object, initial encounter; Y92.007 Garden or yard of unspecified non-institutional (private) residence as the place of occurrence of the external cause; E78.5 Hyperlipidemia, unspecified; G47.33 Obstructive sleep apnea (adult) (pediatric); I25.10 Atherosclerotic heart disease of native coronary artery without angina pectoris; J44.9 Chronic obstructive pulmonary disease, unspecified; M10.9 Gout, unspecified; M19.90 Unspecified osteoarthritis, unspecified site; N40.0 Benign prostatic hyperplasia without lower urinary tract symptoms; R29.6 Repeated falls; Z66 Do not resuscitate; Z79.82 Long term (current) use of aspirin; Z79.51 Long term (current) use of inhaled steroids; Z79.899 Other long term (current) drug therapy; Z87.891 Personal history of nicotine dependence; Z95.1 Presence of aortocoronary bypass graft; Z95.2 Presence of prosthetic heart valve; Z95.810 Presence of automatic (implantable) cardiac defibrillator
CPT/HCPCS: 71010; 73070; 73200; 76000; 80048; 80053; 82306; 83036; 83880; 84155; 85025; 85027; 85610; 85730; 93005; 94150; 94664; 96374; C1713; J0131; J0690; J1170; J1580; J1885; J2250; J2270; J2405; J2710; J3010; J3370; J7030; J7050; J7613